=== PATIENT | female | born 1985 ===

== ENCOUNTER 2016-08-14 18:24 | Emergency (ER) | payer BC ==
[2016-08-14 18:26] VITALS: BMI 28.3
[2016-08-14 19:01] VITALS: RESP 18; TEMP 98; O2SAT 100
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
[2016-08-14 21:33] VITALS: BP 140/81; PULSE 100
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
== END 2016-08-14 21:42 | disposition home or self-care (01) ==
LOC: ED 18:24
DX: S02.42XA Fracture of alveolus of maxilla, initial encounter for closed fracture (principal); S00.81XA Abrasion of other part of head, initial encounter; Y04.2XXA Assault by strike against or bumped into by another person, initial encounter; Y92.009 Unspecified place in unspecified non-institutional (private) residence as the place of occurrence of the external cause; R51 Headache